=== PATIENT | female | born 1955 | race Caucasian/White ===

== ENCOUNTER → 2017-09-26 | Outpatient (CLI) | payer BC ==
[2017-09-26 16:18] LABS: Blood Urea Nitrogen 14 mg/dL (7-17)
--- NOTE | 2017-09-26 23:05 | CT ---
EXAMINATION TYPE: CT chest w con DATE OF EXAM: 09/26/2017 COMPARISON: NONE HISTORY: SOB, cough, and abnormal outside chest x-ray CT DLP: 438 mGycm. Automated Exposure Control for Dose Reduction was Utilized. TECHNIQUE: CT scan of the thorax is performed following with IV Contrast, patient injected with 100 mL of Isovue 300. FINDINGS: LUNGS: There is some focal linear scarring in the right middle lobe anteriorly near diaphragm. There is additional patchy linear scarring and/or atelectasis in both lower lobes and lingula near diaphrag m. There is some reticulonodular opacities centrally in the bilateral mid lungs favoring scarring in the inferior aspect of both upper lobes with mild focal bronchiectasis axial image 28 seen. No suspic ious consolidation or focal groundglass opacity is present. No pleural effusion or pneumothorax is no obed bilaterally MEDIASTINUM: There are no greater than 1 cm hilar or mediastinal lymph nodes. No pericardial effusi on is seen. Main pulmonary artery is dilated at 3.8 cm axial image 23, CT finding consistent with un derlying pulmonary hypertension. Heart size is upper limits of normal. Some coronary artery calcifica tion axial image 30 is seen which is noted marker for coronary artery disease. Mild calcified plaque in the aortic arch. OTHER: Cholecystectomy clips are present. Moderate multilevel spurring in the midthoracic spine is pr esent. IMPRESSION: Some chronic parenchymal changes bilaterally without suspicious acute pulmonary process. Underlying pulmonary artery hypertension is noted.
== END | disposition home or self-care (01) ==
LOC: RADCTMAIN 15:47
PROVIDERS: ATTEND Family Medicine
DX: I27.21 Secondary pulmonary arterial hypertension (principal); R91.8 Other nonspecific abnormal finding of lung field
CPT/HCPCS: 82565; 84520; 71260; 36415; Q9967

== ENCOUNTER → 2018-02-26 | Outpatient (CLI) | payer MEDICARE ==
--- NOTE | 2018-02-26 09:36 | MR ---
EXAMINATION TYPE: MR brain wo/w con DATE OF EXAM: 02/26/2018 8:22 AM COMPARISON: NONE HISTORY: Seizures CONTRAST: Patient received 9.5 mL intravenous Gadavist gadolinium contrast. Multiplanar and multispin-echo imaging of the brain was performed . Pre and post contrast enhanced i mages are obtained. The ventricles, basal cisterns and sulci overlying the cerebral convexities are mildly enlarged. There is evidence of mild periventricular white matter ischemic demyelination. Remote deep white matter insults are also noted. No acute edema is seen on diffusion weighted imaging. There is no evidence for midline shift or mass effect. Acute intracranial hemorrhage or extra-axial collection is not evident. No enhancing lesions are seen. Complete opacification right maxillary sinus. Remaining paranasal sinuses are well aerated. Mastoid a ir cells are well-aerated. IMPRESSION: Age-related atrophic and chronic small vessel ischemic change. No acute intracranial process at this time. No enhancing lesions are seen. Complete opacification right maxillary sinus.
== END | disposition home or self-care (01) ==
LOC: RADMRIMAIN 07:35
PROVIDERS: ATTEND Psychiatry & Neurology Neurology
DX: G31.1 Senile degeneration of brain, not elsewhere classified (principal); I67.82 Cerebral ischemia
CPT/HCPCS: 70553; A9585

== ENCOUNTER → 2018-03-29 | Outpatient (CLI) | payer MEDICARE ==
--- NOTE | 2018-03-29 13:49 | XR ---
EXAMINATION TYPE: XR sinus DATE OF EXAM: 03/29/2018 CLINICAL HISTORY: Follow-up for right maxillary opacification. Rhinorrhea. TECHNIQUE: Dorsey, Correa, and lateral image of the skull are obtained. COMPARISON: MRI dated 02/26/2018 FINDINGS: There remains complete opacification of the right maxillary sinus. The left maxillary sinus , ethmoid sinuses, frontal sinuses and mastoid air cells appear well aerated. Nasal septum is overall midline. Orbits are symmetric. Nasal bone appears intact. Nasopharynx and upper oropharynx are well aerated. Calvarium appears intact. IMPRESSION: Persistent complete opacification of the right maxillary sinus suggesting chronic sinusit is. CT of the sinuses could assess for ostiomeatal occlusion.
== END ==
LOC: RADXRMAIN 13:21
PROVIDERS: ATTEND Family Medicine
DX: J34.89 Other specified disorders of nose and nasal sinuses (principal)
CPT/HCPCS: 70220

== ENCOUNTER → 2018-04-19 | Outpatient (CLI) | payer MEDICARE ==
--- NOTE | 2018-04-19 10:30 | CT ---
EXAMINATION TYPE: CT sinus wo con DATE OF EXAM: 04/19/2018 COMPARISON: X-ray sinus 03/29/2018 HISTORY: Sinusitis CT DLP: 624.50 mGycm. Automated Exposure Control for Dose Reduction was Utilized. TECHNIQUE: CT scan of the sinuses is performed without contrast, axial images are obtained, coronal r eformatted images are also reviewed. FINDINGS: There is near complete opacification of the right maxillary sinus. Some associated high den sity present within the inflammatory change may be due to chronic inflammation. Ostiomeatal units are patent. Small Sophia cell present on the right. Mucoperiosteal thickening present within the sphenoi d sinus on the left, ethmoid air cells. Visualized portion of mastoid air cells show no abnormal opacification. The globes are intact bilate rally. IMPRESSION: Findings compatible with patient's history of chronic sinusitis.
== END | disposition home or self-care (01) ==
LOC: RADCTMAIN 07:55
PROVIDERS: ATTEND Otolaryngology
DX: J32.9 Chronic sinusitis, unspecified (principal)
CPT/HCPCS: 70486

== ENCOUNTER 2018-06-20 11:00 | Day surgery (SDC) | payer MEDICARE ==
[2018-06-08 13:47] VITALS: BMI 34.9
[~2018-06-20 11:00] MED LIST: DEXAMETHASONE SOD PHOSPHATE 4 MG/ML 1 ML VIAL IV ONE; FAMOTIDINE 20 MG/2 ML VIAL IV ONE; LACTATED RINGERS 1,000 ML IV SCH; LIDOCAINE 1% 20 ML VIAL (10MG/ML) FOR IV START INTRADERMA PRN; ONDANSETRON 4 MG/2 ML VIAL IVP ONE; ceFAZolin 1,000 MG in DEXTROSE/WATER 1 50ML.BAG IV ONE; fentaNYL (PF) 50 MCG/ML 2 ML AMP IV PRN
[2018-06-20] MEDS: OXYMETAZOLINE 0.05% NASL SPRAY 1 SPRAY BOTTLE NASAL ONE ×5 (12:23→12:44)
[2018-06-20] MEDS ORDERED: SUCCINYLCHOLINE CHLORIDE 100 MG/5 ML SYR IV ONE (13:57)
[2018-06-20] MEDS ORDERED: fentaNYL (PF) 50 MCG/ML 2 ML AMP ONE (13:57)
[2018-06-20] MEDS ORDERED: PROPOFOL 10 MG/ML 20 ML VIAL IV ONE (13:57)
[2018-06-20] MEDS ORDERED: ePHEDrine SULFATE/0.9% NACL/PF 50 MG/5 ML SYRINGE IV ONE (13:57)
[2018-06-20] MEDS ORDERED: LIDOCAINE 1% INJ 10MG/ML (20 ML MDV) ONE (13:57)
[2018-06-20] MEDS ORDERED: MIDAZOLAM 2 MG/2 ML VIAL ONE (13:57)
[2018-06-20] MEDS ORDERED: LIDOCAINE 1%-EPI 1:100,000 20 ML VIAL SQ ONE ×2 (14:15)
[2018-06-20] MEDS ORDERED: LACTATED RINGERS 1,000 ML IV ONE ×2 (14:46)
--- NOTE | 2018-06-20 14:57 | P.OP ---
Date of Procedure: 06/20/18 Preoperative Diagnosis: Chronic right maxillary sinusitis Deviated nasal septum Postoperative Diagnosis: Same Procedure(s) Performed: Right-sided endoscopic sinus surgery including right maxillary antrostomy with removal of tissue from the maxillary sinus Septoplasty Anesthesia: PATRICE Surgeon: Pravin Barakat Estimated Blood Loss (ml): 10 Pathology: other (Sinus contents) Condition: stable Disposition: PACU Indications for Procedure: This is a 63-year-old white female who had notable right maxillary opacification on a computed tomography scan with what appeared to be fungal debris. She has had some chronic yellow drainage from the right nasal cavity and occasional maxillary pain on the right Operative Findings: Nasal septum deviated to the right. This required correction in order to access the right maxillary sinus. The right maxillary sinus showed fungal debris which was brown to black and was cultured with obstruction of the meatus Description of Procedure: Patient was brought in the operative suite and placed in a supine position. Patient underwent induction of general anesthesia with oral endotracheal intubation without difficulty. The patient was prepped and draped in usual aseptic fashion with the orbits in the operating field for monitoring throughout the case as well as the CT on the computer screen for review throughout the case. 1% lidocaine with 1-100,000 epinephrine was infused submucosally on both sides nasal septum as well as lateral nasal wall on the right and anterior tips turbinate. This was left to work for 7 minutes for vasoconstrictive effect. 0 endoscopic examination was performed on the right and the septal deviation limited access of the middle meatus and therefore septoplasty was performed. A left hemitransfixion incision was made with the mucoperichondrial mucoperiosteal flap on the left elevated. Bony cartilaginous junction was disarticulated and the mucoperiosteal flap on the right was elevated. Bony nasal septal deformities were removed with Kyra forceps. An inferior cartilaginous strip was removed leaving a full 1.5 cm caudal strut. Checking intranasally this corrected the nasoseptal deformities and the hemitransfixion incision was closed with a running 4-0 chromic suture. Under 0 endoscopic examination the middle turbinate was medialized on the right and infundibulotomy was performed followed by uncinectomy with microdebrider. Maxillary antrostomy was enlarged at the expense of the anterior and posterior fontanelle taking care anteriorly not to injure the lacrimal bone. The fungal debris was then suctioned clear under 30 endoscopic examination and the debris was also cultured. Once this was completed a small pledget of standard nasal pore nasal dressing was placed in the middle meatus under direct visualization although not obstructing the ostium. Bilateral Humphries airway splints coated bacitracin ointment were placed in nasal cavities and sutured trans-septally with a 4-0 Vicryl suture. The patient was then allowed to emerge from general anesthesia having tolerated procedure well was excised in the operating suite and transferred to the postop recovery area in satisfactory condition.
[2018-06-20] MEDS: HYDROmorphone 1 MG/ML 1 ML SYRINGE IVP ONE ×2 (15:10→15:17)
[2018-06-20 15:15] VITALS: TEMP 97.2
[2018-06-20 16:00] VITALS: RESP 16
[2018-06-20] MEDS ORDERED: HYDROcodone/APAP 5-325MG 1 EACH TAB PO ONE (16:07)
[2018-06-20 16:29] VITALS: PULSE 67
[2018-06-20 16:47] VITALS: BP 126/69
== END 2018-06-20 17:16 | disposition home or self-care (01) ==
LOC: OR 11:00
PROVIDERS: ATTEND Otolaryngology
DX: J32.0 Chronic maxillary sinusitis (principal); J34.2 Deviated nasal septum; I10 Essential (primary) hypertension; K21.9 Gastro-esophageal reflux disease without esophagitis; E11.9 Type 2 diabetes mellitus without complications; E78.00 Pure hypercholesterolemia, unspecified; E07.9 Disorder of thyroid, unspecified; J45.909 Unspecified asthma, uncomplicated; M19.90 Unspecified osteoarthritis, unspecified site; Z88.5 Allergy status to narcotic agent; Z79.899 Other long term (current) drug therapy; Z79.890 Hormone replacement therapy; Z79.84 Long term (current) use of oral hypoglycemic drugs; Z88.8 Allergy status to other drugs, medicaments and biological substances; Z88.1 Allergy status to other antibiotic agents
CPT/HCPCS: 31267; 30520; 87070; 87075; 87102; J2250; J2001; J3010; J1170; J0690; J0330; J2704; 88300; 88305

== ENCOUNTER → 2020-01-13 | Outpatient (CLI) | payer MEDICARE ==
--- NOTE | 2020-01-15 09:24 | MM ---
Reason for exam: screening (asymptomatic). Last mammogram was performed 4 years and 2 months ago. History: Patient is postmenopausal. Stereotactic core biopsy, September 17, 2001. Excisional biopsy of the left breast. Taking estrogen for 1 year 6 months. Taking progesterone for 1 year 6 months. Physical Findings: A clinical breast exam by your physician is recommended on an annual basis and results should be correlated with mammographic findings. MG Screening Mammo w CAD Bilateral CC and MLO view(s) were taken. Prior study comparison: November 25, 2015, bilateral MG screening mammo w CAD. December 02, 2013, bilateral MG screening mammo w CAD. There are scattered fibroglandular densities. Finding #1: There is a 3 mm circumscribed oval mass located 3.1 cm from the nipple in the lower inner quadrant, anterior position of the right breast with new calcifications. Finding #2: There are typically benign calcifications in both breasts. New finding since November 25, 2015 and December 02, 2013. ASSESSMENT: Incomplete: need additional imaging evaluation, BI-RAD 0 RECOMMENDATION: Special view mammogram and ultrasound of the right breast. [facility] will attempt to contact patient to return for supplemental views and ultrasound.
== END | disposition home or self-care (01) ==
LOC: RADMAMWWP 07:53
PROVIDERS: ATTEND Family Medicine
DX: Z12.31 Encounter for screening mammogram for malignant neoplasm of breast (principal)
CPT/HCPCS: 77067

== ENCOUNTER → 2020-01-31 | Outpatient (CLI) | payer MEDICARE ==
--- NOTE | 2020-01-31 14:30 | MM ---
Reason for exam: additional evaluation requested from abnormal screening. Last mammogram was performed 1 month ago. History: Patient is postmenopausal. Stereotactic core biopsy, September 17, 2001. Excisional biopsy of the left breast. Taking estrogen for 1 year 6 months. Taking progesterone for 1 year 6 months. Physical Findings: Nurse did not find any significant physical abnormalities on exam. MG Work Up Mamm w CAD RT CC with magnification and LM view(s) were taken of the right breast. Prior study comparison: January 13, 2020, bilateral MG screening mammo w CAD. November 25, 2015, bilateral MG screening mammo w CAD. Finding: There are typically benign fine ed/clustered calcifications in the middle position of the right breast. No significant changes in finding since January 13, 2020. These results were verbally communicated with the patient and result sheet given to the patient on 01/31/20. ASSESSMENT: Benign, BI-RAD 2 RECOMMENDATION: Return to routine screening mammogram schedule for both breasts.
== END | disposition home or self-care (01) ==
LOC: RADMAMWWP 13:31
PROVIDERS: ATTEND Family Medicine
DX: R92.8 Other abnormal and inconclusive findings on diagnostic imaging of breast (principal)
CPT/HCPCS: 77065

== ENCOUNTER → 2022-12-08 | Outpatient (CLI) | payer MEDICARE ==
[~2022-12-08] MED LIST changes: +DENOSUMAB 60 MG/ML 1 ML SYRINGE SQ ONE; -DEXAMETHASONE SOD PHOSPHATE 4 MG/ML 1 ML VIAL IV ONE; -FAMOTIDINE 20 MG/2 ML VIAL IV ONE; -LACTATED RINGERS 1,000 ML IV SCH; -LIDOCAINE 1% 20 ML VIAL (10MG/ML) FOR IV START INTRADERMA PRN; -ONDANSETRON 4 MG/2 ML VIAL IVP ONE; -ceFAZolin 1,000 MG in DEXTROSE/WATER 1 50ML.BAG IV ONE; -fentaNYL (PF) 50 MCG/ML 2 ML AMP IV PRN
[2022-12-08 11:24] VITALS: BP 128/86; PULSE 80; RESP 16; TEMP 97.6
== END | disposition home or self-care (01) ==
LOC: PROCWHC3 11:06
PROVIDERS: ATTEND Family Medicine
DX: M81.0 Age-related osteoporosis without current pathological fracture (principal)
CPT/HCPCS: 96372; J0897

== ENCOUNTER → 2023-03-23 | Outpatient (CLI) | payer MEDICARE ==
--- NOTE | 2023-03-25 16:08 | MM ---
Reason for Exam: Screening (asymptomatic). Last mammogram was performed 3 year(s) and 2 month(s) ago. Patient History: Menarche at age 8. First Full-Term at age 20. Hysterectomy at age 20. Postmenopausal. Currently using Estrogen, for 1 year, 6 months. Currently using Progesterone, for 1 year, 6 months. Excisional Biopsy on the Left side. 09/17/2001, Stereotactic Core Biopsy. Risk Values: Brenda 5 year model risk: 2.5%. NCI Lifetime model risk: 7.4%. Prior Study Comparison: 11/25/2015 Bilateral Screening Mammogram, [facility]. 01/13/2020 Bilateral Screening Mammogram, [facility]. 01/31/2020 Right Diagnostic Mammogram, [facility]. Tissue Density: There are scattered fibroglandular densities. Findings: Analyzed By CAD. The pattern is symmetrical and stable. No significant interval changes. Chronic nodularity is within the left breast No suspicious groups of microcalcifications, spiculated or lobular masses, architectural distortion or other secondary signs of malignancy are mammographically apparent. Overall Assessment: Benign, BI-RAD 2 Management: Screening Mammogram of both breasts in 1 year. A negative mammogram report should not preclude additional follow up of suspicious palpable abnormalities. Patient should continue monthly self breast exam. A clinical breast exam by your physician is recommended on an annual basis and results should be correlated with mammographic findings. Electronically signed and approved by: Nicholas Romo D.O. Radiologis
== END | disposition home or self-care (01) ==
LOC: RADMAMWWP 10:18
PROVIDERS: ATTEND Family Medicine
DX: Z12.31 Encounter for screening mammogram for malignant neoplasm of breast (principal); Z78.0 Asymptomatic menopausal state
CPT/HCPCS: 77067

== ENCOUNTER → 2024-10-11 | Outpatient (CLI) | payer MEDICARE ==
--- NOTE | 2024-10-14 07:42 | MM ---
Reason for Exam: Screening (asymptomatic). Last mammogram was performed 1 year(s) and 7 month(s) ago. Patient History: Menarche at age 8. First Full-Term at age 20. Hysterectomy at age 20. Postmenopausal. Currently using Estrogen, for 1 year, 6 months. Currently using Progesterone, for 1 year, 6 months. Excisional Biopsy on the Left side. 09/17/2001, Stereotactic Core Biopsy. Risk Values: Brenda 5 year model risk: 2.6%. NCI Lifetime model risk: 7.0%. Prior Study Comparison: 01/13/2020 Bilateral Screening Mammogram, [facility]. 01/31/2020 Right Diagnostic Mammogram, [facility]. 03/23/2023 Bilateral MG screening mammo w CAD, [facility]. Tissue Density: The breasts are almost entirely fatty. Findings: Analyzed By CAD. Right breast: There is no suspicious group of microcalcifications or new suspicious mass. Benign-appearing calcifications right breast. Left breast: There is no suspicious group of microcalcifications or new suspicious mass. Benign-appearing calcifications left breast. Overall Assessment: Benign, BI-RAD 2 Management: Screening Mammogram of both breasts in [address] [facility] will attempt to contact patient to return for supplemental views and ultrasound if indicated. Patient should continue monthly self-breast exams. A clinical breast exam by your physician is recommended on an annual basis. This exam should not preclude additional follow-up of suspicious palpable abnormalities. Note on Brenda scores and lifetime risk: 1. A Brenda score greater than 3% is considered moderate risk. If this is the case, consider specialist referral to assess eligibility for a risk reducing agent. 2. If overall lifetime risk for the development of breast cancer is 20% or higher, the patient may qualify for future screening with alternating mammogram and breast MRI. [facility], , 10/14/2024 7:38 AM. Electronically signed and approved by: Nathan Wells DO
== END | disposition home or self-care (01) ==
LOC: RADMAMWWP 14:48
PROVIDERS: ATTEND Family Medicine
DX: Z12.31 Encounter for screening mammogram for malignant neoplasm of breast (principal); R92.313 Mammographic fatty tissue density, bilateral breasts; Z78.0 Asymptomatic menopausal state
CPT/HCPCS: 77067